=== PATIENT | male | born 2000 | race Caucasian/White ===

== ENCOUNTER 2020-09-20 00:45 | Emergency (ER) | payer MEDICAID ==
[~2020-09-20] VITALS: Ht 170.2 cm; Wt 90.7 kg
[2020-09-20 00:49] VITALS: BP_SYST 124
--- NOTE | 2020-09-20 01:00 | NUR ---
Patient to ER hallway 1 for evaluation. Report given to BILLY BUTT.
--- NOTE | 2020-09-20 01:05 | NUR ---
DR. KUNZ AT BEDSIDE FOR EVALUATION.
--- NOTE | 2020-09-20 01:10 | NUR ---
PATIENT AAOX4 AND AMBULATORY C/O LACERATION TO RIGHT LOWER JACQUES. STATED HE WAS WALKING UP STAIRS, SLIPPED AND REOPENED AN OLD CUT. VSS.
[2020-09-20] MEDS ORDERED: LIDOCAINE/EPI 1% 1:100000 20 ML VIAL INJ ONE (01:15)
[2020-09-20] MEDS ORDERED: BACITRACIN 1 GM OINT TP ONE (01:33)
--- NOTE | 2020-09-20 01:40 | NUR ---
LAC CLEANED AND DRESSED WITH TOPICAL OINTMENT. CLEAN NON ADHERENT DRESSING APPLIED. PT TOLERATED WELL.
[2020-09-20] MEDS ORDERED: DIPH-TET-PERTUS Vaccine 0.5 ML VIAL (ADACEL) I.M. ONE ×2 (01:54→02:00)
[2020-09-20] MEDS ORDERED: AMOX-426 PO (02:00)
[2020-09-20 02:03] VITALS: BP_SYST 124
--- NOTE | 2020-09-20 02:04 | NUR ---
Patient given written and verbal discharge instructions and verbalizes understanding. DR. ZE GONCALVES MD discussed with patient the results and treatment provided. Patient in stable condition. ID arm band removed. Rx of AUGMENTIN given. Patient educated on pain management and to follow up with PMD. Pain Scale 0/10. Opportunity for questions provided and answered. Medication side effect fact sheet provided.
== END 2020-09-20 02:03 | disposition home or self-care (01) ==
LOC: SED 00:45
DX: S81.811A Laceration without foreign body, right lower leg, initial encounter (principal); W01.198A Fall on same level from slipping, tripping and stumbling with subsequent striking against other object, initial encounter; Y93.89 Activity, other specified; Y92.89 Other specified places as the place of occurrence of the external cause; Y99.8 Other external cause status
CPT/HCPCS: 90715; 99283

== ENCOUNTER 2020-09-21 15:15 | Emergency (ER) | payer MEDICAID ==
[~2020-09-21] VITALS: Ht 170.2 cm; Wt 90.7 kg
[~2020-09-21 15:15] MED LIST: AMOX-426 PO
[2020-09-21 15:20] VITALS: BP_SYST 155
--- NOTE | 2020-09-21 16:55 | NUR ---
BROUGHT BACK TO BED #5 AND REPORT GIVEN TO CANDIE
--- NOTE | 2020-09-21 17:00 | NUR ---
pt was seen in the ER yesterday after sustaining a lac the the right blood. lac was left open and covered w/ an occlusie dressing. Pt arrives today for a recheck
[2020-09-21] MEDS ORDERED: BACITRACIN 1 GM OINT TP ONE (17:08)
--- NOTE | 2020-09-21 17:10 | NUR ---
IVANNA PLAZA at bedside examining patient.
--- NOTE | 2020-09-21 17:30 | NUR ---
X-RAY AT THE BEDSIDE
[2020-09-21 17:51] VITALS: BP_SYST 155
--- NOTE | 2020-09-21 17:52 | NUR ---
Patient given written and verbal discharge instructions and verbalizes understanding. ER MD discussed with patient the results and treatment provided. Patient in stable condition. ID arm band removed. Rx of given. Pain Scale 3/10. Opportunity for questions provided and answered. Medication side effect fact sheet provided.
== END 2020-09-21 17:52 | disposition home or self-care (01) ==
LOC: SED 15:15
DX: S81.801A Unspecified open wound, right lower leg, initial encounter (principal); W01.0XXA Fall on same level from slipping, tripping and stumbling without subsequent striking against object, initial encounter; Y93.89 Activity, other specified; Y92.89 Other specified places as the place of occurrence of the external cause; Y99.8 Other external cause status
CPT/HCPCS: 73590-TC; 99283